=== PATIENT | female | born 1990 | race Hispanic/Latino ===

== ENCOUNTER → 2020-11-29 | Outpatient (CLI) | payer OTHER ==
[~2020-11-29] MED LIST: ISOVUE-300 61% 50ML VIAL As Ordered ONE; LIDOCAINE 1% MDV 20ML VIAL As Ordered ONE; TRIAMCINOLONE ACETONIDE SUSP 40 MG/ML VIAL (J3301) As Ordered ONE
--- NOTE | 2020-11-29 13:15 | REP ---
INDICATION: BURSITIS LT HIP. COMPARISON: None TECHNIQUE: The procedure was performed by MIK Mann, under the direct supervision of Dr. Chris. The benefits and risks of the procedure were explained to the patient, and an informed consent was obtained. Directly prior to the start of the procedure, a formal time-out was completed in the procedure room. The left femoral neck joint space was localized using fluoroscopic guidance. The skin was prepped and draped in a sterile fashion. Approximately 5 mL of 1% Lidocaine 10 mg/ml was used as a local anesthetic. Using fluoroscopic guidance, a #22 gauge spinal needle was inserted and advanced into the left femoral neck joint space. Approximately 1 mL of Isovue 300 was injected to verify placement. Ten mL of a solution containing 9 mL 1% lidocaine 10 mg/ml and 1 mL Kenalog 40 milligrams/milliliter was injected into the joint space. The needle was removed and hemostasis was achieved. FINDINGS: The patient tolerated the procedure well and there were no immediate complications. IMPRESSION: 1. Fluoroscopically guided left hip pain injection. 0.1 minutes of fluoroscopy time was utilized for this procedure. Some fluoroscopic images are performed with last image hold technology. These images require no additional radiation. <Electronically signed by Susan Serrato > 11/29/20 1236 <Electronically signed by Ambrose Chris > 11/29/20 1311
== END ==
LOC: M RADPRO 09:52
PROVIDERS: ATTEND Student in an Organized Health Care Education/Training Program
DX: M25.552 Pain in left hip (principal)
CPT/HCPCS: 20610; 77002; J3301; Q9967

== ENCOUNTER 2021-01-14 10:41 | Emergency (ER) | payer OTHER ==
[~2021-01-14] VITALS: Ht 144.8 cm; Wt 57.1 kg
[2021-01-14] MEDS ORDERED: KETOROLAC 30 MG/ML 1ML VIAL IV ONE (14:20)
[2021-01-14] MEDS ORDERED: ACETAMINOPHEN 500 MG TAB PO ONE (14:20)
[2021-01-14] MEDS ORDERED: NS 1,000 ML IV ONE (14:20)
[2021-01-14] MEDS ORDERED: ONDANSETRON 4MG/2ML VIAL IV ONE (14:25)
[2021-01-14 14:39] LABS: BASO % 0.5 % (0.0-1.0); EOS # 0.1 10^3/uL (0.0-0.5); EOS % 0.7 % (0.0-3.0); HEMATOCRIT 38.1 % (36.0-47.0); HEMOGLOBIN 12.4 g/dl (12.0-15.5); LYMPH # 2.4 10^3/uL (1.5-5.0); LYMPH % 28.9 % (24.0-44.0); MEAN CORPUSCULAR HEMOGLOBIN 29.5 pg (27.0-33.0); MEAN CORPUSCULAR HGB CONC 32.5 g/dl (32.0-36.5); MEAN CORPUSCULAR VOLUME 90.5 fl (80.0-96.0); MONO # 0.4 10^3/uL (0.0-0.8); MONO % 5.3 % (2.0-8.0); NEUTROPHILS # 5.4 10^3/uL (1.5-8.5); NEUTROPHILS % 64.4 % (36.0-66.0); PLATELET COUNT, AUTOMATED 187 10^3/uL (150-450); RED BLOOD COUNT 4.21 10^6/uL (4.00-5.40); WHITE BLOOD COUNT 8.3 10^3/uL (4.0-10.0)
[2021-01-14 15:14] LABS: ALBUMIN 3.9 GM/DL (3.2-5.2); ALT/SGPT 24 U/L (12-78); BILIRUBIN,DIRECT 0.2 MG/DL (0.0-0.2); BILIRUBIN,TOTAL 1.2 MG/DL (0.2-1.0); BLOOD UREA NITROGEN 10 MG/DL (7-18); CARBON DIOXIDE LEVEL 29 MEQ/L (21-32); CHLORIDE LEVEL 107 MEQ/L (98-107); CK-MB VALUE MASS < 1.0 NG/ML (<3.6); CPK CREATINE PHOSPHOKINASE 333 U/L (26-192); CREATININE FOR GFR 0.79 MG/DL (0.55-1.30); GLOMERULAR FILTRATION RATE > 60.0 (>60); GLUCOSE, FASTING 86 MG/DL (70-100); LIPASE 62 U/L (73-393); POTASSIUM SERUM 4.4 MEQ/L (3.5-5.1); SODIUM LEVEL 140 MEQ/L (136-145); TOTAL PROTEIN 7.1 GM/DL (6.4-8.2); TROPONIN I < 0.02 NG/ML (< 0.10)
[2021-01-14 15:47] VITALS: BP 120/74
[2021-01-14] MEDS ORDERED: ONDA4TAB6 PO (18:29)
== END 2021-01-14 19:00 | disposition home or self-care (01) ==
LOC: M ED 10:41
DX: K52.9 Noninfective gastroenteritis and colitis, unspecified (principal); R00.1 Bradycardia, unspecified; K21.9 Gastro-esophageal reflux disease without esophagitis; Z87.891 Personal history of nicotine dependence
CPT/HCPCS: 76705; 80048; 80076; 81001; 82550; 82553; 83690; 84484; 84702; 85025; 93005; 96361; 96374; 96375; 99284; J1885; J2405

== ENCOUNTER 2021-12-16 12:18 | Emergency (ER) | payer OTHER ==
[~2021-12-16] VITALS: Ht 144.8 cm; Wt 56.8 kg
[~2021-12-16 12:18] MED LIST changes: -ISOVUE-300 61% 50ML VIAL As Ordered ONE; -LIDOCAINE 1% MDV 20ML VIAL As Ordered ONE; +ONDA4TAB6 PO; -TRIAMCINOLONE ACETONIDE SUSP 40 MG/ML VIAL (J3301) As Ordered ONE
[2021-12-16 12:19] VITALS: BP 125/77
[2021-12-16] MEDS ORDERED: ETON68IM SC (12:25)
== END 2021-12-16 14:09 | disposition left against medical advice (07) ==
LOC: M ED 12:18
DX: Z53.21 Procedure and treatment not carried out due to patient leaving prior to being seen by health care provider (principal)

== ENCOUNTER → 2022-02-24 | Outpatient (CLI) | payer OTHER ==
[~2022-02-24] MED LIST changes: +ETON68IM SC; +PROHANCE 279.3MG/ML 5ML VIAL ONE
== END ==
LOC: M PLAIMG 13:10
PROVIDERS: ATTEND Physician Assistant Medical
DX: D35.01 Benign neoplasm of right adrenal gland (principal)
CPT/HCPCS: 74183; A9576